=== PATIENT | female | born 1935 | race Asian ===

== ENCOUNTER 2016-10-22 18:19 | Emergency (ER) | payer OTHER ==
--- NOTE | 2016-10-22 21:12 | DIAGNOSTIC IMAGING REPORT ---
PROCEDURE: XR CHEST 1 VIEW INDICATION: HEADACHE TECHNIQUE: Single view chest. 2023 COMPARISON: None. FINDINGS: The heart size is normal. Dual lead left-sided transvenous pacemaker is in place. Normal aortic contour with mild aortic arch atherosclerosis. No central venous congestion. Clear lungs. Slight biapical pleural plaquing. No effusion or pneumothorax. Intact osseous structures. IMPRESSION: 1. No evidence of acute cardiopulmonary disease.
--- NOTE | 2016-10-22 21:20 | ED ORDER SUMMARY ---
..... Patient: CHELSEA COLIN OrderSheet [facility] VisitID: [id number] [place] [address] 81y, F Registration Date/Time: 10/22/2016 ORDER SHEET Weight: 81.6 kg (stated) Allergies: None GENERAL ORDERS: Chest 1V Urgent (20:10/22/2016 Carter ABDALLA) (Ack 20:12 AMcQuoid ER Tech1) (20:29 MCampbell) CT Head wo Cont Urgent (20:10/22/2016 Carter ABDALLA) (Ack 20:12 AMcQuoid ER TechNicci) (20:29 MCampbell) Top Distribution Executive (Continuous) (20:10/22/2016 Carter ABDALLA) (Ack 20:12 AMcQuoid ER TechNicci) (20:20 TBowen R.N.) CBC w Diff Urgent (20:10/22/2016 Carter ABDALLA) (Ack 20:12 AMcQuoid ER TechNicci) (20:38 TBowen R.N.) CMP Urgent (20:10/22/2016 Carter ABDALLA) (Ack 20:12 AMcQuoid ER TechNicci) (20:38 TBowen R.N.) UA-Culture if indicated Urgent (20:10/22/2016 Carter ABDALLA) (Ack 20:12 AMcQuoid ER TechNicci) (20:20 TBowen R.N.) PT with INR Urgent (20:10/22/2016 Carter ABDALLA) (Ack 20:12 AMcQuoid ER TechNicci) (20:38 TBowen R.N.) PTT Urgent (20:10/22/2016 Carter ABDALLA) (Ack 20:12 AMcQuoid ER TechNicci) (20:38 TBowen R.N.) Amylase Urgent (20:10/22/2016 Carter ABDALLA) (Ack 20:12 AMcQuoid ER TechNicci) (20:38 TBowen R.N.) Lipase Urgent (20:10/22/2016 Carter ABDALLA) (Ack 20:12 AMcQuoid ER TechNicci) (20:38 TBowen R.N.) CPK Urgent (20:11 10/22/2016 Carter ABDALLA) (Ack 20:12 AMcQuoid ER Tech1) (20:39 TBowen R.N.) Troponin-I Urgent (20:11 10/22/2016 Carter ABDALLA) (Ack 20:12 AMcQuoid ER Tech1) (20:39 TBowen R.N.) Oxygen (2 L/min) (NC) (20:11 10/22/2016 Carter ABDALLA) (Ack 20:12 AMcQuoid ER Tech1) (20:20 TBowen R.N.) Pulse oximeter (20:11 10/22/2016 Carter ABDALLA) (Ack 20:12 AMcQuoid ER Tech1) (20:20 TBowen R.N.) EKG - ER Stat (20:10/22/2016 Carter ABDALLA) (Ack 20:12 AMcQuoid ER Tech1) (20:38 TBowen R.N.) MEDICATION ORDERS: IV FLUIDS: IV Saline Lock (20:10/22/2016 Carter ABDALLA) (20:47 TBowen R.N.) ORDER SHEET NOTES: [Electronically signed by Sharyn Martini R.N. (21:39 10/22/2016)] [Electronically signed by Ryland Perla MD (02:28 10/30/2016)] [Electronically locked/signed by Sharyn Martini R.N. (21:39 10/22/2016)]
--- NOTE | 2016-10-22 21:20 | ED NURSING NOTES ---
Clinical Report - Nurses [address] [address] [place] [address] 10/22/2016 18:22 Patient: CHELSEA COLIN TRIAGE Triage time 18:33. Acuity: LEVEL 3. Chief Complaint: HEADACHE. --18:37 Sheri Paz R.N. 18:33 10/22/16. BP: 167/93. HR: 71. RR: 18. O2 saturation: 96%. Temp: 98.2 F. Pain level now: 01/08. --18:37 Sheri Paz R.N. Weight: 81.6 kg stated. Height/Length: 72 inches Per Patient. BMI: 24.4. --18:36 Sheri Paz R.N. Medications AmLODIPine Besylate Oral 5 mg, daily. Aspir-Low Oral. Furosemide Oral 80 mg, daily. Glipizide Oral 5 mg, daily. Isosorbide Mononitrate Oral 30mg daily. Levothyroxine Sodium Oral 25 mcg, daily. Lisinopril Oral 40 mg, daily. MetFORMIN HCl Oral 1000mg, 2x a day. Omeprazole Oral 20 mg, 3x a day. Simvastatin Oral 20 mg, daily. --18:35 Sheri Paz R.N. Allergies None. --18:35 Sheri Paz R.N. History Arrived by private vehicle. Historian: patient and family. This started today "comes and goes" every 5-10 seconds. SOCIAL HX: Smoker- current status unknown. No alcohol use or drug use. --18:37 Sheri Paz R.N. PAST MEDICAL HX: ( stent placement with DC approx 10 years ago.). --18:40 Sheri Paz R.N. PROBLEMS: GI Bleeding. Pacemaker. Myocardial Infarction. Diabetes Mellitus. Hypertension. --18:34 Sheri Paz R.N. Interventions ID band on patient. To treatment room. --18:37 Sheri Paz R.N. PHYSICAL ASSESSMENT ( pt reports intermittent headache, left sided, that comes and goes.). GENERAL / NEURO / PSYCH: Alert. Oriented X 4. Appears in no acute distress. Speech within normal limits. HEENT: No facial asymmetry noted. RESPIRATORY: Respirations not labored. CVS: Capillary refill less than 2 seconds. GI / : Abdomen soft and nontender. SKIN: Skin is warm. --18:38 Sheri Paz R.N. NURSING PROGRESS NOTES 18:38 10/22/2016 Site #1 started via IV in the left wrist with an 20g angiocath; one attempt. Blood drawn: rainbow set. Saline lock flushed with 10 mL saline. --18:38 Sheri Paz R.N. Patient gowned. Reassurance given. Call light placed in reach. Side rails up x 2. Bed placed in lowest position. ( Pt. is Mandarin speaking. Son at bedside who speaks Lebanese and Mandarin.). --18:38 Sheri Paz R.N. 18:40 10/22/16. BP: 161/48. HR: 65. O2 saturation: 96%. --18:41 Sheri Paz R.N. ( Report to RICHY Coles for end of shift coverage.). --19:00 Sheri Paz R.N. The patient is resting quietly. --19:50 Snady Wright Patient walked to NE with tech. --20:21 Sandy Wright EKG time: (0 PM). EKG was ordered, performed by a tech and shown to the ED physician. --20:42 Yasmin Robin. DISPOSITION / DISCHARGE No learning barriers present. Discharge instructions provided and reviewed with the patient. Reviewed medication(s) side effects, precautions and course information. Prescription(s) given to the patient (given to son). Patient verbalized understanding. Written instructions provided in Lebanese. The patient was discharged by the physician. She was discharged home and accompanied by family and son. She left the Emergency Department ambulatory and via private vehicle. Family member driving (son). ( pt dc home with son ambulatory to lobby with steady gait, given rx and f/u.). --21:37 Kev Steinberg R.N. 21:34 10/22/16. BP: 154/81. HR: 67. RR: 17. O2 saturation: 97%. Temp: 97.6 F. Pain level now deferred. --21:37 Page-Kev Pruitt R.N. Locked/Released at 10/22/2016 21:39 by Sandy Wright
--- NOTE | 2016-10-22 21:20 | ED NURSING NOTES ---
Clinical Report - Nurses [address] [address] [place] [address] 10/22/2016 18:22 Patient: CHELSEA COLIN TRIAGE Triage time 18:33. Acuity: LEVEL 3. Chief Complaint: HEADACHE. --18:37 Sheri Paz R.N. 18:33 10/22/16. BP: 167/93. HR: 71. RR: 18. O2 saturation: 96%. Temp: 98.2 F. Pain level now: 01/08. --18:37 Sheri Paz R.N. Weight: 81.6 kg stated. Height/Length: 72 inches Per Patient. BMI: 24.4. --18:36 Sheir Paz R.N. Medications AmLODIPine Besylate Oral 5 mg, daily. Aspir-Low Oral. Furosemide Oral 80 mg, daily. Glipizide Oral 5 mg, daily. Isosorbide Mononitrate Oral 30mg daily. Levothyroxine Sodium Oral 25 mcg, daily. Lisinopril Oral 40 mg, daily. MetFORMIN HCl Oral 1000mg, 2x a day. Omeprazole Oral 20 mg, 3x a day. Simvastatin Oral 20 mg, daily. --18:35 Sheri Paz R.N. Allergies None. --18:35 Sheri Paz R.N. History Arrived by private vehicle. Historian: patient and family. This started today "comes and goes" every 5-10 seconds. SOCIAL HX: Smoker- current status unknown. No alcohol use or drug use. --18:37 Sheri Paz R.N. PAST MEDICAL HX: ( stent placement with [place] approx 10 years ago.). --18:40 Sheri Paz R.N. PROBLEMS: GI Bleeding. Pacemaker. Myocardial Infarction. Diabetes Mellitus. Hypertension. --18:34 Sheri Paz R.N. Interventions ID band on patient. To treatment room. --18:37 Sheri Paz R.N. PHYSICAL ASSESSMENT ( pt reports intermittent headache, left sided, that comes and goes.). GENERAL / NEURO / PSYCH: Alert. Oriented X 4. Appears in no acute distress. Speech within normal limits. HEENT: No facial asymmetry noted. RESPIRATORY: Respirations not labored. CVS: Capillary refill less than 2 seconds. GI / : Abdomen soft and nontender. SKIN: Skin is warm. --18:38 Sheri Paz R.N. NURSING PROGRESS NOTES 18:38 10/22/2016 Site #1 started via IV in the left wrist with an 20g angiocath; one attempt. Blood drawn: rainbow set. Saline lock flushed with 10 mL saline. --18:38 Sheri Paz R.N. Patient gowned. Reassurance given. Call light placed in reach. Side rails up x 2. Bed placed in lowest position. ( Pt. is Mandarin speaking. Son at bedside who speaks New Zealander and Mandarin.). --18:38 Sheri Paz R.N. 18:40 10/22/16. BP: 161/48. HR: 65. O2 saturation: 96%. --18:41 Sheri Paz R.N. ( Report to RICHY Coles for end of shift coverage.). --19:00 Sheri Paz R.N. The patient is resting quietly. --19:50 Sandy Wright Patient walked to MA with tech. --20:21 Sandy Wright EKG time: (0 PM). EKG was ordered, performed by a tech and shown to the ED physician. --20:42 Yasmin Robin. DISPOSITION / DISCHARGE No learning barriers present. Discharge instructions provided and reviewed with the patient. Reviewed medication(s) side effects, precautions and course information. Prescription(s) given to the patient (given to son). Patient verbalized understanding. Written instructions provided in New Zealander. The patient was discharged by the physician. She was discharged home and accompanied by family and son. She left the Emergency Department ambulatory and via private vehicle. Family member driving (son). ( pt dc home with son ambulatory to lobby with steady gait, given rx and f/u.). --21:37 Kev Steinberg R.N. 21:34 10/22/16. BP: 154/81. HR: 67. RR: 17. O2 saturation: 97%. Temp: 97.6 F. Pain level now deferred. --21:37 Page-Kev Pruitt R.N. Locked/Released at 10/22/2016 21:39 by Sandy Wright
--- NOTE | 2016-10-22 21:20 | ED ORDER SUMMARY ---
..... Patient: CHELSEA COLIN OrderSheet [facility] VisitID: [id number] [place] [address] 81y, F Registration Date/Time: 10/22/2016 ORDER SHEET Weight: 81.6 kg (stated) Allergies: None GENERAL ORDERS: Chest 1V Urgent (20:10/22/2016 Carter ABDALLA) (Ack 20:12 AMcQuoid ER Tech1) (20:29 MCampbell) CT Head wo Cont Urgent (20:10/22/2016 Carter ABDALLA) (Ack 20:12 AMcQuoid ER TechNicci) (20:29 MCampbell) Decorator Hand (Continuous) (20:10/22/2016 Carter ABDALLA) (Ack 20:12 AMcQuoid ER TechNicci) (20:20 TBowen R.N.) CBC w Diff Urgent (20:10/22/2016 Carter ABDALLA) (Ack 20:12 AMcQuoid ER TechNicci) (20:38 TBowen R.N.) CMP Urgent (20:10/22/2016 Carter ABDALLA) (Ack 20:12 AMcQuoid ER TechNicci) (20:38 TBowen R.N.) UA-Culture if indicated Urgent (20:10/22/2016 Carter ABDALLA) (Ack 20:12 AMcQuoid ER TechNicci) (20:20 TBowen R.N.) PT with INR Urgent (20:10/22/2016 Carter ABDALLA) (Ack 20:12 AMcQuoid ER TechNicci) (20:38 TBowen R.N.) PTT Urgent (20:10/22/2016 Carter ABDALLA) (Ack 20:12 AMcQuoid ER TechNicci) (20:38 TBowen R.N.) Amylase Urgent (20:10/22/2016 Carter ABDALLA) (Ack 20:12 AMcQuoid ER TechNicci) (20:38 TBowen R.N.) Lipase Urgent (20:10/22/2016 Carter ABDALLA) (Ack 20:12 AMcQuoid ER TechNicci) (20:38 TBowen R.N.) CPK Urgent (20:11 10/22/2016 Carter ABDALLA) (Ack 20:12 AMcQuoid ER Tech1) (20:39 TBowen R.N.) Troponin-I Urgent (20:11 10/22/2016 Carter ABDALLA) (Ack 20:12 AMcQuoid ER Tech1) (20:39 TBowen R.N.) Oxygen (2 L/min) (NC) (20:11 10/22/2016 Carter ABDALLA) (Ack 20:12 AMcQuoid ER Tech1) (20:20 TBowen R.N.) Pulse oximeter (20:11 10/22/2016 Carter ABDALLA) (Ack 20:12 AMcQuoid ER Tech1) (20:20 TBowen R.N.) EKG - ER Stat (20:10/22/2016 Carter ABDALLA) (Ack 20:12 AMcQuoid ER Tech1) (20:38 TBowen R.N.) MEDICATION ORDERS: IV FLUIDS: IV Saline Lock (20:10/22/2016 Carter ABDALLA) (20:47 TBowen R.N.) ORDER SHEET NOTES: [Electronically signed by Sharyn Martini R.N. (21:39 10/22/2016)] [Electronically signed by Ryland Perla MD (02:28 10/30/2016)] [Electronically locked/signed by Sharyn Martini R.N. (21:39 10/22/2016)]
--- NOTE | 2016-10-22 21:20 | ED CLINICAL REPORT ---
Clinical Report - Physicians/Mid Levels [facility] [address] [place] [address] 10/22/2016 18:22 Patient: CHELSEA COLIN Time Seen: 19:29. Arrived- By private vehicle. Historian- patient and son. HISTORY OF PRESENT ILLNESS Chief Complaint: HEADACHE. This started today and is now gone. It was abrupt in onset and has been intermittent. Located in the right hemicranial region. No neck pain. The patient has had blurred vision (chronically). It has been similar to previous symptoms. No associated nausea, numbness, weakness or vomiting. (her son says that she has been mildly confused). REVIEW OF SYSTEMS No chills, fever, sweats, calf pain or chest pain. No cough, difficulty breathing, pedal edema, palpitations or abdominal pain. No constipation, diarrhea, nausea, vomiting or urinary problems. All systems otherwise negative, except as recorded above. PAST HISTORY Problems: GI Bleeding. Abdominal Pain. Pacemaker. Myocardial Infarction. Cystitis. Diabetes Mellitus. Hypertension. Immunizations. Medications: AmLODIPine Besylate Oral 5 mg, daily. Aspir-Low Oral. Furosemide Oral 80 mg, daily. Glipizide Oral 5 mg, daily. Isosorbide Mononitrate Oral 30mg daily. Levothyroxine Sodium Oral 25 mcg, daily. Lisinopril Oral 40 mg, daily. MetFORMIN HCl Oral 1000mg, 2x a day. Omeprazole Oral 20 mg, 3x a day. Simvastatin Oral 20 mg, daily. Allergies: None. SOCIAL HISTORY Never smoker. No alcohol use or drug use. FAMILY HISTORY Denies family medical history. ADDITIONAL NOTES The nursing notes have been reviewed. PHYSICAL EXAM Vital Signs: 10/22/2016 18:33 BP: 167/93. HR: 71. RR: 18. O2 saturation: 96%. Temp: 98.2 F. Pain level now: 8/10. Have been reviewed. Appearance: Alert. Eyes: Pupils equal, round and reactive to light. Eyes normal inspection. ENT: Pharynx normal. Neck: Moderate left-sided carotid bruit present. CVS: Normal heart rate and rhythm. Heart sounds normal. Respiratory: No respiratory distress. Breath sounds normal. Abdomen: Soft and nontender. No organomegaly. Back: Normal inspection. Skin: Skin warm and dry. Normal skin color. No rash. Normal skin turgor. Extremities: Extremities exhibit normal ROM. No calf tenderness. No lower extremity edema. Neuro: Alert. Mood/affect normal. Speech normal. Cranial nerves normal (as tested). No cerebellar findings. No motor deficit. No sensory deficit. LABS, X-RAYS, AND EKG EKG: No acute process. Rate: 60. Atrial and ventricular paced rhythm. Prior EKG unavailable. The study has been independently viewed by me. Chest X-ray: No acute disease. The X-rays were independently viewed by me. Laboratory Tests: UA-Culture if indicated: (GONZALEZ: 10/22/2016 20:15) ( MsgRcvd 10/22/2016 20:36) Final results Test Result Flag Units (Reference) URINE COLOR YELLOW URINE APPEARANCE SL CLOUDY URINE GLUCOSE NEGATIVE (NEGATIVE) URINE BILIRUBIN NEGATIVE (NEGATIVE) URINE KETONE NEGATIVE (NEGATIVE) URINE SPECIFIC GRAVITY 1.010 (1.010-1.030) URINE PH 6.5 (5.0-8.0) URINE PROTEIN TRACE (NEGATIVE) URINE UROBILINOGEN 0.2 EU/dL (0.2-1.0) URINE NITRITE POSITIVE (NEGATIVE) URINE BLOOD NEGATIVE (NEGATIVE) URINE LEUK ESTERASE POSITIVE (NEGATIVE) URINE RBC NONE SEEN rbc/hpf (0-1) URINE WBC 5-10 wbc/hpf (0-1) URINE EPITHELIAL CELLS 0-1 EPI/hpf (0-5) URINE BACTERIA MANY (4+) (NONE SEEN) URINE COMMENT CULTURE INDICATED URINE CULTURES ARE SET-UP BASED ON THE FOLLOWING CRITERIA:POSITIVE NITRITEPOSITIVE LEUKOCYTE ESTERASEGREATER THAN 10 WHITE BLOOD CELLSMODERATE (2+) OR GREATER BACTERIA CBC w Diff: (GONZALEZ: 10/22/2016 18:40) ( MsgRcvd 10/22/2016 20:26) Final results Test Result Flag Units (Reference) WHITE BLOOD COUNT 4.5 K/uL (4.5-11.5) RED BLOOD COUNT 3.42 L M/uL (4.00-5.20) HEMOGLOBIN 10.6 L gm/dL (12.0-16.0) HEMATOCRIT 31.7 L % (36.0-46.0) MEAN CELL VOLUME 93 fL (80-100) MEAN CORPUSCULAR HGB 31 pg (26-34) MEAN CORPUSCULAR HGB CONC 34 g/dL (31-37) RED CELL DISTRIBUTION WIDTH 13.1 % (11.6-14.8) PLATELET COUNT 168 K/uL (150-400) NEUTROPHIL % 51.4 % (50-75) LYMPH % 35.4 % (25-40) MONO % 9.0 % (3-14) EOSINOPHIL % 3.4 % (0-4) BASOPHIL % 0.8 % (0-2) PT with INR: (GONZALEZ: 10/22/2016 18:40) ( [facility] 10/22/2016 20:31) Final results Test Result Flag Units (Reference) INR 0.9 (0.8-1.2) Low Intensity Therapy: INR 1.5-2.0 PT range 18.5-23.1Mod.Intensity Therapy: INR 2.0-3.0 PT range 23.1-31.5High Intensity Therapy: INR 2.5-3.5 PT range 27.4-35.5High Intensity Therapy 2: INR 3.0-4.0 PT range 31.5-39.3 APTT 31 SECONDS (24-34) CMP: (GONZALEZ: 10/22/2016 18:40) ( [facility] 10/22/2016 20:52) Final results Test Result Flag Units (Reference) GLUCOSE 188 H mg/dL (70-110) BUN 32 H mg/dL (7-18) CREATININE 1.2 mg/dL (0.6-1.3) Estimated GFR 45.83 mL/min Estimated GFR- 55.54 mL/min Note: Persistent reduction over 3 months in eGFR<60 mL/min/1.73 m2 defines CKD. Patients with eGFR values>=60 mL/min/1.73 m2 may also have CKD if evidence ofpersistent proteinuria. Additional information may be foundat www.kidney.org. SODIUM 141 mmol/L (136-145) POTASSIUM 4.3 mmol/L (3.5-5.1) CHLORIDE 105 mmol/L (98-107) CARBON DIOXIDE 25 mmol/L (21-32) CALCIUM 9.1 mg/dL (8.5-10.1) TOTAL PROTEIN 7.7 g/dL (6.4-8.2) ALBUMIN 3.6 g/dL (3.3-5.0) BILIRUBIN, TOTAL 0.4 mg/dL (0.0-1.0) ALKALINE PHOSPHATASE 80 U/L (46-116) AST (SGOT) 15 U/L (15-37) ALT (SGPT) 18 U/L (12-78) LIPASE 175 U/L (73-393) AMYLASE 64 U/L (25-115) CPK 53 U/L (24-260) TROPONIN I <0.05 L ng/mL (0.00-1.5) TROPONIN REFERENCE RANGE:<0.1 NEGATIVE0.1-1.5 INDETERMINANT>1.5 POSITIVE . PROGRESS AND PROCEDURES Course of Care: Patient is stable. Patient/family counseled. Old medical records reviewed. Disposition: Discharged. Condition: stable. CLINICAL IMPRESSION Episodic headache. asymptomatic bacteruria. INSTRUCTIONS Warnings: Further evaluation is necessary. GENERAL WARNINGS: Return or contact your physician immediately if your condition worsens or changes unexpectedly, if not improving as expected, or if other problems arise. Your Current Medications: CONTINUE TAKING THE FOLLOWING MEDICATIONS: AmLODIPine Besylate Oral : 5 mg daily. Aspir-Low Oral. Furosemide Oral : 80 mg daily. Glipizide Oral : 5 mg daily. Isosorbide Mononitrate Oral : 30mg daily. Levothyroxine Sodium Oral : 25 mcg daily. Lisinopril Oral : 40 mg daily. MetFORMIN HCl Oral : 1000mg 2x a day. Omeprazole Oral : 20 mg 3x a day. Simvastatin Oral : 20 mg daily. Prescription Medications: Ultram 50 mg: take 1-2 orally every 6 hours. Dispense fifteen (15). No refills. Substitution is permissible. Follow-up: Follow up with your doctor SASHA COLIN in two days. Call for the next available appointment. Follow up with a neurologist- as recommended by your primary care physician. Understanding of the discharge instructions verbalized by patient and family. (Electronically signed by Ryland Perla MD 10/30/2016 2:28) Addenda for CHELSEA COLIN VisitID: [id number] Date: 10/22/2016 10/23/2016 16:46 contact made with family, re: urine culture; Rx called to [facility] for Macrobid 100 mg 1 po q 12 hrs, #14; per Ovidio COLLIER (Electronically signed by Vale Rogel R.N. - 10/23/2016 16:46)
--- NOTE | 2016-10-22 21:20 | DIAGNOSTIC IMAGING REPORT ---
PROCEDURE: CT HEAD WITHOUT CONTRAST INDICATION: HEADACHE TECHNIQUE: Axial CT images were acquired through the head. Coronal and sagittal reformations were created. COMPARISON: 08/16/2013 FINDINGS: Mild to moderate cerebral cortical atrophy, mildly progressed compared to the prior study. Mild patchy hypodensity in the periventricular and subcortical white matter. No focal cortical volume loss. No intracranial hemorrhage or extraaxial fluid collections. Ventricles are normal in size, shape and position. There is no mass, mass effect or midline shift. The barnard-white matter differentiation is normal. There is no edema. Mild calcific atherosclerosis of the intracranial internal carotid arteries. The calvarium is intact. Chronic partial opacification of the left maxillary sinus. Other sinuses and mastoids are normally aerated. The extracranial soft tissues and orbits are normal. IMPRESSION: 1. No CT evidence of acute intracranial process. 2. Age related involutional and white matter changes, mildly progressed since the prior study. 3. Chronic left maxillary sinus disease. 4. Findings discussed with Dr. Perla at [address] scans at this facility use dose modulation, iterative reconstruction, and/or weight-based dosing when appropriate to reduce radiation dose to as low as reasonably achievable.
--- NOTE | 2016-10-30 02:28 | ED MAR SUMMARY ---
..... Medication Administration Record [facility] [address] [place], [place] [id number] Patient: CHELSEA COLIN Visit ID: [id number] 81y, F Weight: 81.6 kg Height/Length: 72 in BMI: 24.4 ALLERGIES: None
--- NOTE | 2016-10-30 02:28 | ED MED RECONCILIATION SUMMARY ---
Patient: CHELSEA COLIN Medication Reconciliation Report [facility] VisitID: [id number] [address] [place] [address] 81y, F Registration Date/Time: 10/22/2016 Weight: 81.6 kg Height/Length: 72 in. BMI: 24.4 ALLERGIES: None The patient's Home Medications are listed below: CONTINUE TAKING THE FOLLOWING MEDICATIONS: AmLODIPine Besylate Oral 5 mg, daily Aspir-Low Oral Furosemide Oral 80 mg, daily Glipizide Oral 5 mg, daily Isosorbide Mononitrate Oral 30mg daily Levothyroxine Sodium Oral 25 mcg, daily Lisinopril Oral 40 mg, daily MetFORMIN HCl Oral 1000mg, 2x a day Omeprazole Oral 20 mg, 3x a day Simvastatin Oral 20 mg, daily The source(s) of the original Home Medication information: Not obtained. The following Medications were given to the patient in the Emergency Department: None. The following Medications were prescribed to the patient: Ultram 50 mg: take 1-2 orally every 6 hours. Dispense fifteen (15). No refills. Substitution is permissible. -- Ryland Perla MD
--- NOTE | 2016-10-30 02:28 | ED MED RECONCILIATION SUMMARY ---
Patient: CHELSEA COLIN Medication Reconciliation Report [facility] VisitID: [id number] [address] [place] [address] 81y, F Registration Date/Time: 10/22/2016 Weight: 81.6 kg Height/Length: 72 in. BMI: 24.4 ALLERGIES: None The patient's Home Medications are listed below: CONTINUE TAKING THE FOLLOWING MEDICATIONS: AmLODIPine Besylate Oral 5 mg, daily Aspir-Low Oral Furosemide Oral 80 mg, daily Glipizide Oral 5 mg, daily Isosorbide Mononitrate Oral 30mg daily Levothyroxine Sodium Oral 25 mcg, daily Lisinopril Oral 40 mg, daily MetFORMIN HCl Oral 1000mg, 2x a day Omeprazole Oral 20 mg, 3x a day Simvastatin Oral 20 mg, daily The source(s) of the original Home Medication information: Not obtained. The following Medications were given to the patient in the Emergency Department: None. The following Medications were prescribed to the patient: Ultram 50 mg: take 1-2 orally every 6 hours. Dispense fifteen (15). No refills. Substitution is permissible. -- Ryland Perla MD
--- NOTE | 2016-10-30 02:28 | ED MAR SUMMARY ---
..... Medication Administration Record [facility] [address] [place], [place] [id number] Patient: CHELSEA COLIN Visit ID: [id number] 81y, F Weight: 81.6 kg Height/Length: 72 in BMI: 24.4 ALLERGIES: None
--- NOTE | 2016-10-30 02:28 | ED DISCHARGE INSTRUCTIONS ---
Patient: CHELSEA COLIN General Instructions [facility] VisitID: [id number] [place] [address] 81y, F Registration Date/Time: 10/22/2016 Episodic headache. asymptomatic bacteruria. INSTRUCTIONS Warnings: Further evaluation is necessary. GENERAL WARNINGS: Return or contact your physician immediately if your condition worsens or changes unexpectedly, if not improving as expected, or if other problems arise. Your Current Medications: CONTINUE TAKING THE FOLLOWING MEDICATIONS: AmLODIPine Besylate Oral : 5 mg daily. Aspir-Low Oral. Furosemide Oral : 80 mg daily. Glipizide Oral : 5 mg daily. Isosorbide Mononitrate Oral : 30mg daily. Levothyroxine Sodium Oral : 25 mcg daily. Lisinopril Oral : 40 mg daily. MetFORMIN HCl Oral : 1000mg 2x a day. Omeprazole Oral : 20 mg 3x a day. Simvastatin Oral : 20 mg daily. Prescription Medications: Ultram 50 mg: take 1-2 orally every 6 hours. Dispense fifteen (15). No refills. Substitution is permissible. Follow-up: Follow up with your doctor SASHA COLIN in two days. Call for the next available appointment. Follow up with a neurologist- as recommended by your primary care physician. Understanding of the discharge instructions verbalized by patient and family. ADDITIONAL INFORMATION Headache [Unspecified] The cause of your headache today is not clear, but it does not appear to be the sign of any serious illness. Under stress, some people tense the muscles of their shoulder, neck and scalp without knowing it. If this condition lasts long enough, a TENSION HEADACHE can occur. A MIGRAINE HEADACHE is caused by changes in blood flow to the brain. A migraine attack may be triggered by emotional stress, hormone changes during the menstrual cycle, oral contraceptives, alcohol use, certain foods containing tyramine, eye strain, weather changes, missing meals, lack of sleep or oversleeping. Other causes of headache include a viral illness with high fever, head injury with concussion, sinus, ear or throat infection, dental pain and TMJ (jaw joint) pain. More serious but less common causes of headache include stroke, brain hemorrhage, brain tumor, meningitis and encephalitis. Home Care: If you were given pain medicine for this headache, do not drive yourself home. Arrange for a ride, instead. When you get home, try to sleep. You should feel much better when you wake up. Apply heat to the back of your neck to relieve neck muscle spasm. Migraine headaches may respond best to an ice pack on the forehead or at the base of the skull. If you are having nausea or vomiting, follow a light diet until your headache is relieved. If you have a migraine type headache, use sunglasses when in the daylight or around bright indoor lighting until symptoms improve. Bright glaring light can worsen this kind of headache. Follow Up with your doctor if the headache is not better within the next 24 hours. If you have frequent headaches you should discuss a treatment plan with your primary care doctor. By being aware of the earliest signs of headache, and starting treatment right away, you may be able to stop the pain yourself. Get Prompt Medical Attention if any of the following occur: Worsening of your head pain or no improvement within 24 hours Repeated vomiting (unable to keep liquids down) Fever of 100.4F (38C) or higher, or as directed by your healthcare provider Stiff neck Extreme drowsiness, confusion or fainting Dizziness, vertigo (dizziness with spinning sensation) Weakness of an arm or leg or one side of the face Difficulty with speech or vision Tramadol Hydrochloride Oral tablet What is this medicine? TRAMADOL (TRA ma dole) is a pain reliever. It is used to treat moderate to severe pain in adults. How should I use this medicine? Take this medicine by mouth with a full glass of water. Follow the directions on the prescription label. If the medicine upsets your stomach, take it with food or milk. Do not take more medicine than you are told to take. Talk to your stna regarding the use of this medicine in children. Special care may be needed. What side effects may I notice from receiving this medicine? Side effects that you should report to your doctor or health interior plant caretaker as soon as possible: allergic reactions like skin rash, itching or hives, swelling of the face, lips, or tongue breathing difficulties, wheezing confusion itching light headedness or fainting spells redness, blistering, peeling or loosening of the skin, including inside the mouth seizures Side effects that usually do not require medical attention (report to your doctor or health interior plant caretaker if they continue or are bothersome): constipation dizziness drowsiness headache nausea, vomiting What may interact with this medicine? Do not take this medicine with any of the following medications: MAOIs like Carbex, Eldepryl, Marplan, Nardil, and Parnate This medicine may also interact with the following medications: alcohol or medicines that contain alcohol antihistamines benzodiazepines bupropion carbamazepine or oxcarbazepine clozapine cyclobenzaprine digoxin furazolidone linezolid medicines for depression, anxiety, or psychotic disturbances medicines for migraine headache like almotriptan, eletriptan, frovatriptan, naratriptan, rizatriptan, sumatriptan, zolmitriptan medicines for pain like pentazocine, buprenorphine, butorphanol, meperidine, nalbuphine, and propoxyphene medicines for sleep muscle relaxants naltrexone phenobarbital phenothiazines like perphenazine, thioridazine, chlorpromazine, mesoridazine, fluphenazine, prochlorperazine, promazine, and trifluoperazine procarbazine warfarin What if I miss a dose? If you miss a dose, take it as soon as you can. If it is almost time for your next dose, take only that dose. Do not take double or extra doses. Where should I keep my medicine? Keep out of the reach of children. Store at room temperature between 15 and 30 degrees C (59 and 86 degrees F). Keep container tightly closed. Throw away any unused medicine after the expiration date. What should I tell my health care provider before I take this medicine? They need to know if you have any of these conditions: brain tumor depression drug abuse or addiction head injury if you frequently drink alcohol containing drinks kidney disease or trouble passing urine liver disease lung disease, asthma, or breathing problems seizures or epilepsy suicidal thoughts, plans, or attempt; a previous suicide attempt by you or a family member an unusual or allergic reaction to tramadol, codeine, other medicines, foods, dyes, or preservatives or trying to get breast-feeding What should I watch for while using this medicine? Tell your doctor or health interior plant caretaker if your pain does not go away, if it gets worse, or if you have new or a different type of pain. You may develop tolerance to the medicine. Tolerance means that you will need a higher dose of the medicine for pain relief. Tolerance is normal and is expected if you take this medicine for a long time. Do not suddenly stop taking your medicine because you may develop a severe reaction. Your body becomes used to the medicine. This does NOT mean you are addicted. Addiction is a behavior related to getting and using a drug for a non-medical reason. If you have pain, you have a medical reason to take pain medicine. Your doctor will tell you how much medicine to take. If your doctor wants you to stop the medicine, the dose will be slowly lowered over time to avoid any side effects. You may get drowsy or dizzy. Do not drive, use machinery, or do anything that needs mental alertness until you know how this medicine affects you. Do not stand or sit up quickly, especially if you are an older patient. This reduces the risk of dizzy or fainting spells. Alcohol can increase or decrease the effects of this medicine. Avoid alcoholic drinks. You may have constipation. Try to have a bowel movement at least every 2 to 3 days. If you do not have a bowel movement for 3 days, call your doctor or health interior plant caretaker. Your mouth may get dry. Chewing sugarless gum or sucking hard candy, and drinking plenty of water may help. Contact your doctor if the problem does not go away or is severe. You have been given the following additional information: Headache, Unspecified Tramadol Hydrochloride Oral tablet (Electronically signed by Ryland Perla MD 10/30/2016 2:28)
== END 2016-10-22 21:37 | disposition home or self-care (01) ==
LOC: ED SRH 18:19
DX: R51 Headache (principal); R82.71 Bacteriuria; I10 Essential (primary) hypertension; E11.9 Type 2 diabetes mellitus without complications; Z79.84 Long term (current) use of oral hypoglycemic drugs; Z79.82 Long term (current) use of aspirin; I25.2 Old myocardial infarction; Z79.899 Other long term (current) drug therapy; Z95.0 Presence of cardiac pacemaker
CPT/HCPCS: 90004; 90100; 90148; 90469; 90616; 92235; 92530; 92610; 94001; 94060; 95059

== ENCOUNTER 2016-11-30 10:00 | Emergency (ER) | payer OTHER ==
--- NOTE | 2016-11-30 11:48 | ED NURSING NOTES ---
Clinical Report - Nurses [facility] [address] [place] [address] 11/30/2016 10:02 Patient: CHELSEA COLIN TRIAGE Triage time 10:12. Acuity: LEVEL 3. Chief Complaint: RIGHT LOWER EXTREMITY PAIN, SWELLING and REDNESS. Alert. No acute distress. JOHNSON COMA SCORE: [place] Coma Scale: 15- eyes open spontaneously (4); best verbal response- oriented x 4 (5); best motor response- obeys commands (6). --10:19 Cecelia Gonzalez R.N. 10:12 11/30/16. BP: 143/67. HR: 74. RR: 16. O2 saturation: 98%. Temp: 98.2 F. Pain level now: 5/10. --10:19 Cecelia Gonzalez R.N. 10:12 11/30/16. BP: 143/67. HR: 74. RR: 16. O2 saturation: 98%. Temp: 98.2 F. Pain level now: 5/10. --10:19 Cecelia Gonzalez R.N. Weight: 68 kg estimated. Height/Length: 62 inches Estimated. BMI: 27.4. --10:14 Cecelia Gonzalez R.N. Medications AmLODIPine Besylate Oral 5 mg, daily. Aspir-Low Oral. Furosemide Oral 80 mg, daily. Glipizide Oral 5 mg, daily. Isosorbide Mononitrate Oral 30mg daily. Levothyroxine Sodium Oral 25 mcg, daily. Lisinopril Oral 40 mg, daily. MetFORMIN HCl Oral 1000mg, 2x a day. Omeprazole Oral 20 mg, 3x a day. Simvastatin Oral 20 mg, daily. --10:17 Cecelia Gonzalez R.N. Tramadol HCL Oral 50 mg, as needed. --10:17 Cecelia Gonzalez R.N. Allergies None. --10:17 Cecelia Gonzalez R.N. Medication/allergy information source: the patient's family. --10:19 Cecelia Gonzalez R.N. History Arrived by private vehicle. Historian: patient and family. Accompanied by family. Primary physician (michelle). This occurred (2 days ago). She has had swelling, redness and trouble walking. The patient has been limping when trying to walk. PAST MEDICAL HX: Tetanus status: unknown. The patient is post-menopausal. SOCIAL HX: Never smoker. No alcohol use or drug use. FALL RISK ASSESSMENT: Fall risk assessment completed. No fall risk identified. NUTRITIONAL RISK ASSESSMENT: The nutritional risk assessment revealed no deficiencies. FUNCTIONAL ASSESSMENT: Functional assessment: no impairments noted. LEARNING NEEDS ASSESSMENT: A learning needs assessment was performed. Factors affecting the patient's ability to learn include communication / language barriers. --10:19 Cecelia Gonzalez R.N. PROBLEMS: Headache. GI Bleeding. Abdominal Pain. Pacemaker. Myocardial Infarction. Cystitis. Diabetes Mellitus. Hypertension. --10:18 Cecelia Gonzalez R.N. ADDITIONAL SURGERIES: Pacemaker. Stents. --10:18 Cecelia Gonzalez R.N. Interventions ID band on patient. To room. --10:19 Cecelia Gonzalez R.N. PHYSICAL ASSESSMENT Ambulatory to room. EXTREMITIES: Erythema on the extremities. Limited ROM present. Increased warmth on the extremities. Lower extremity edema. Extremity pulses are within normal limits. Neuro-vascular status intact to the extremity. Right foot: tenderness, swelling and erythema. Limited weight bearing secondary to pain. SKIN: Skin intact. Skin is warm and dry. --10:20 Cecelia Gonzalez R.N. NURSING PROGRESS NOTES Extremity elevated. Two patient identifiers checked. Call light placed in reach. Side rails up x 1. Bed placed in lowest position. Brakes of bed on. Patient ready for evaluation. --10:20 Cecelia Gonzalez R.N. 10:23 11/30/2016 Hydrocodone-APAP (Hydrocodone-Acetaminophen) PO 5/325 mg Tablets 1 tab given. Allergies verified, confirmed 5 rights and sedative warning given to the patient and patient's family. --10:23 Cecelia Gonzalez R.N. 12:11/30/2016 Keflex (Cephalexin) PO 500 mg given. Allergies verified and confirmed 5 rights. --14:54 Cecelia Gonzalez R.N. 12:10 11/30/2016 Bactrim DS (Sulfamethoxazole-TMP DS) PO 1 tab given. Allergies verified and confirmed 5 rights. --14:54 Cecelia Gonzalez R.N. DISPOSITION / DISCHARGE 12:15. No learning barriers present. Discharge instructions provided and reviewed with the patient and family. Reviewed medication(s) side effects, precautions, dosing and course information. Prescription(s) given to the mechanical project engineer. Patient verbalized understanding. Written instructions provided in Swedish. The patient was discharged home and accompanied by family. She left the Emergency Department ambulatory and via private vehicle. Family member driving. Medication list reviewed and validated. --14:54 Cecelia Gonzalez R.N. 14:52 11/30/16. BP: 128/72. HR: 78. RR: 16. O2 saturation: 100%. Temp: deferred. Pain level now: 07/11. 12:32 11/30/16. BP: 133/75. HR: 80. RR: 16. O2 saturation: 100% on room air. 10:12 11/30/16. BP: 143/67. HR: 74. RR: 16. O2 saturation: 98%. Temp: 98.2 F. Pain level now: 10/08. --14:54 Cecelia Gonzalez R.N. Locked/Released at 11/30/2016 14:55 by Cecelia Gonzalez R.N.
--- NOTE | 2016-11-30 11:48 | ED ORDER SUMMARY ---
..... Patient: CHELSEA COLIN OrderSheet [facility] VisitID: [id number] [place] [address] 81y, F Registration Date/Time: 11/30/2016 ORDER SHEET Weight: 68.0 kg (estimated) Allergies: None GENERAL ORDERS: Toe Right (right 4th digit) Urgent (10:19 11/30/2016 Shefali Nicholas) (Ack 10:24 OHernandez) (12:08 SRoberts R.N.) MEDICATION ORDERS: Hydrocodone-APAP PO 5/325 mg (NOW, HIGH ALERT MEDICATION) (10:19 11/30/2016 Shefali Nicholas) (Ack 10:20 SRoberts R.N.) (10:23 SRoberts R.N.) Keflex PO 500 mg (NOW) (12:11/30/2016 Shefali Nicholas) (Ack 12:08 SRoberts R.N.) (14:54 SRoberts R.N.) Bactrim DS PO (Tablet 800-160 mg) 1 tab (NOW) (12:11/30/2016 Shefali Nicholas) (Ack 12:08 SRoberts R.N.) (14:54 SRoberts R.N.) IV FLUIDS: ORDER SHEET NOTES: [Electronically signed by Cecelia Gonzalez R.N. (14:55 11/30/2016)] [Electronically signed by Aldo Bourgeois Dr. (17:23 11/30/2016)] [Electronically locked/signed by Cecelia Gonzalez R.N. (14:55 11/30/2016)]
--- NOTE | 2016-11-30 11:48 | ED CLINICAL REPORT ---
Clinical Report - Physicians/Mid Levels [place] [address] [facility] [place] [address] 11/30/2016 10:02 Patient: CHELSEA COLIN Time Seen: 1010; initial patient contact. Arrived- By private vehicle. Historian- patient. HISTORY OF PRESENT ILLNESS Chief Complaint: Injury to the right 4th toe. The injury happened past 2 days. Occurred at home. (does not recall). Patient is experiencing moderate pain. Patient denies injury to the head or neck. No other injury. REVIEW OF SYSTEMS The patient complains of pain on weight bearing. She has had swelling. No suspected foreign body or skin laceration. redness. All systems otherwise negative, except as recorded above. PAST HISTORY See nurses notes. Tetanus immunization status is up-to-date. SOCIAL HISTORY Never smoker. No alcohol use or drug use. No recent travel. Is a local resident. PHYSICAL EXAM Appearance: Alert. Oriented X3. No acute distress. CVS: Normal heart rate and rhythm. Heart sounds normal. Pulses normal. Respiratory: No respiratory distress. Breath sounds normal. Chest nontender. No rales, rhonchi or wheezes. Abdomen: No visible injury. Soft and nontender. Skin: Skin intact. Skin warm and dry. Extremities: (erythema and swelling to the 4th right toe only. no other areas of injury/infection. neurovasc intact. skin intact. no fb. no pineda abnormalities or crepitus.). Extremities otherwise negative. LABS, X-RAYS, AND EKG Rt Toes X-ray: (PROCEDURE: XR TOE - RIGHT INDICATION: PAIN TECHNIQUE: Three views. COMPARISON: Right foot x-ray 06/21/2014. FINDINGS: Soft tissue swelling of the right fourth toe but there is no fracture, dislocation or bony destruction. IMPRESSION: 1. Right fourth toe soft tissue swelling but no fracture or evidence of osteomyelitis.). The X-rays were independently viewed by me and interpreted by the radiologist. The X-rays were discussed with the radiologist (via pacs). PROGRESS AND PROCEDURES Course of Care: the patient is a pleasasnt 81 yo female presenting for evaluation of 4th right toe pain. patient non-toxic. no systemic symptoms. possible dislocation, fracture, or osteo. patient agreeable to plan. work up negative. patient with improved symptoms. repeat examination reassuring. Discussed work up, diagnosis, home care, follow up, and return precautions. All questions answered. Patient expressed understanding of these instructions and was agreeable to them. Disposition: Discharged. Condition: good. CLINICAL IMPRESSION 11/30/2016 10:12 BP: 143/67. HR: 74. RR: 16. O2 saturation: 98%. Temp: 98.2 F. Pain level now: 5/10. Hypertensive. Oxygen saturation normal. Cellulitis of the right 4th toe. INSTRUCTIONS Warnings: GENERAL WARNINGS: Return or contact your physician immediately if your condition worsens or changes unexpectedly, if not improving as expected, or if other problems arise. Specifically return if pain, vomiting, bleeding, breathing difficulty or fever. Your Current Medications: CONTINUE TAKING THE FOLLOWING MEDICATIONS: AmLODIPine Besylate Oral : 5 mg daily. Aspir-Low Oral. Furosemide Oral : 80 mg daily. Glipizide Oral : 5 mg daily. Isosorbide Mononitrate Oral : 30mg daily. Levothyroxine Sodium Oral : 25 mcg daily. Lisinopril Oral : 40 mg daily. MetFORMIN HCl Oral : 1000mg 2x a day. Omeprazole Oral : 20 mg 3x a day. Simvastatin Oral : 20 mg daily. Tramadol HCL Oral : 50 mg, prn. Prescription Medications: Cephalexin 500 mg: take 1 capsule orally every 8 hours for 10 days. No refill. [place] 5 mg / 325 mg tablets: take 1 orally every 6 hours as needed for pain. Dispense twelve (12). No refill. Substitution is permissible. Bactrim DS 800 mg / 160 mg: take 1 tablet orally every 12 hours for 10 days. No refill. Substitution is permissible. Follow-up: Return to the emergency department as needed. Follow up with a specialist. Follow up with your doctor in three days. Reason for referral: recheck today's concerns. Summary of care provided to patient via paper. Screening today revealed the patient's blood pressure to be in the normal range. The patient should follow up with a primary care provider for blood pressure management. Understanding of the discharge instructions verbalized by patient. (Electronically signed by Aldo Bourgeois Dr. 11/30/2016 17:23)
--- NOTE | 2016-11-30 11:48 | ED ORDER SUMMARY ---
..... Patient: CHELSEA COLIN OrderSheet [facility] VisitID: [id number] [place] [address] 81y, F Registration Date/Time: 11/30/2016 ORDER SHEET Weight: 68.0 kg (estimated) Allergies: None GENERAL ORDERS: Toe Right (right 4th digit) Urgent (10:19 11/30/2016 Shefali Nicholas) (Ack 10:24 OHernandez) (12:08 SRoberts R.N.) MEDICATION ORDERS: Hydrocodone-APAP PO 5/325 mg (NOW, HIGH ALERT MEDICATION) (10:19 11/30/2016 Shefali Nichoals) (Ack 10:20 SRoberts R.N.) (10:23 SRoberts R.N.) Keflex PO 500 mg (NOW) (12:11/30/2016 Shefali Nicholas) (Ack 12:08 SRoberts R.N.) (14:54 SRoberts R.N.) Bactrim DS PO (Tablet 800-160 mg) 1 tab (NOW) (12:11/30/2016 Shefali Nicholas) (Ack 12:08 SRoberts R.N.) (14:54 SRoberts R.N.) IV FLUIDS: ORDER SHEET NOTES: [Electronically signed by Cecelia Gonzalez R.N. (14:55 11/30/2016)] [Electronically signed by Aldo Bourgeois Dr. (17:23 11/30/2016)] [Electronically locked/signed by Cecelia Gonzalez R.N. (14:55 11/30/2016)]
--- NOTE | 2016-11-30 11:48 | ED NURSING NOTES ---
Clinical Report - Nurses [facility] [address] [place] [address] 11/30/2016 10:02 Patient: CHELSEA COLIN TRIAGE Triage time 10:12. Acuity: LEVEL 3. Chief Complaint: RIGHT LOWER EXTREMITY PAIN, SWELLING and REDNESS. Alert. No acute distress. JOHNSON COMA SCORE: [place] Coma Scale: 15- eyes open spontaneously (4); best verbal response- oriented x 4 (5); best motor response- obeys commands (6). --10:19 Cecelia Gonzalez R.N. 10:12 11/30/16. BP: 143/67. HR: 74. RR: 16. O2 saturation: 98%. Temp: 98.2 F. Pain level now: 5/10. --10:19 Cecelia Gonzalez R.N. 10:12 11/30/16. BP: 143/67. HR: 74. RR: 16. O2 saturation: 98%. Temp: 98.2 F. Pain level now: 5/10. --10:19 Cecelia Gonzalez R.N. Weight: 68 kg estimated. Height/Length: 62 inches Estimated. BMI: 27.4. --10:14 Cecelia Gonzalez R.N. Medications AmLODIPine Besylate Oral 5 mg, daily. Aspir-Low Oral. Furosemide Oral 80 mg, daily. Glipizide Oral 5 mg, daily. Isosorbide Mononitrate Oral 30mg daily. Levothyroxine Sodium Oral 25 mcg, daily. Lisinopril Oral 40 mg, daily. MetFORMIN HCl Oral 1000mg, 2x a day. Omeprazole Oral 20 mg, 3x a day. Simvastatin Oral 20 mg, daily. --10:17 Cecelia Gonzalez R.N. Tramadol HCL Oral 50 mg, as needed. --10:17 Cecelia Gonzalez R.N. Allergies None. --10:17 Cecelia Gonzalez R.N. Medication/allergy information source: the patient's family. --10:19 Cecelia Gonzalez R.N. History Arrived by private vehicle. Historian: patient and family. Accompanied by family. Primary physician (michelle). This occurred (2 days ago). She has had swelling, redness and trouble walking. The patient has been limping when trying to walk. PAST MEDICAL HX: Tetanus status: unknown. The patient is post-menopausal. SOCIAL HX: Never smoker. No alcohol use or drug use. FALL RISK ASSESSMENT: Fall risk assessment completed. No fall risk identified. NUTRITIONAL RISK ASSESSMENT: The nutritional risk assessment revealed no deficiencies. FUNCTIONAL ASSESSMENT: Functional assessment: no impairments noted. LEARNING NEEDS ASSESSMENT: A learning needs assessment was performed. Factors affecting the patient's ability to learn include communication / language barriers. --10:19 Cecelia Gonzalez R.N. PROBLEMS: Headache. GI Bleeding. Abdominal Pain. Pacemaker. Myocardial Infarction. Cystitis. Diabetes Mellitus. Hypertension. --10:18 Cecelia Gonzalez R.N. ADDITIONAL SURGERIES: Pacemaker. Stents. --10:18 Cecelia Gonzalez R.N. Interventions ID band on patient. To room. --10:19 Cecelia Gonzalez R.N. PHYSICAL ASSESSMENT Ambulatory to room. EXTREMITIES: Erythema on the extremities. Limited ROM present. Increased warmth on the extremities. Lower extremity edema. Extremity pulses are within normal limits. Neuro-vascular status intact to the extremity. Right foot: tenderness, swelling and erythema. Limited weight bearing secondary to pain. SKIN: Skin intact. Skin is warm and dry. --10:20 Cecelia Gonzalez R.N. NURSING PROGRESS NOTES Extremity elevated. Two patient identifiers checked. Call light placed in reach. Side rails up x 1. Bed placed in lowest position. Brakes of bed on. Patient ready for evaluation. --10:20 Cecelia Gonzalez R.N. 10:23 11/30/2016 Hydrocodone-APAP (Hydrocodone-Acetaminophen) PO 5/325 mg Tablets 1 tab given. Allergies verified, confirmed 5 rights and sedative warning given to the patient and patient's family. --10:23 Cecelia Gonzalez R.N. 12:11/30/2016 Keflex (Cephalexin) PO 500 mg given. Allergies verified and confirmed 5 rights. --14:54 Cecelia Gonzalez R.N. 12:10 11/30/2016 Bactrim DS (Sulfamethoxazole-TMP DS) PO 1 tab given. Allergies verified and confirmed 5 rights. --14:54 Cecelia Gonzalez R.N. DISPOSITION / DISCHARGE 12:15. No learning barriers present. Discharge instructions provided and reviewed with the patient and family. Reviewed medication(s) side effects, precautions, dosing and course information. Prescription(s) given to the professor of spanish. Patient verbalized understanding. Written instructions provided in Upper Sorbian. The patient was discharged home and accompanied by family. She left the Emergency Department ambulatory and via private vehicle. Family member driving. Medication list reviewed and validated. --14:54 Cecelia Gonzalez R.N. 14:52 11/30/16. BP: 128/72. HR: 78. RR: 16. O2 saturation: 100%. Temp: deferred. Pain level now: 07/11. 12:32 11/30/16. BP: 133/75. HR: 80. RR: 16. O2 saturation: 100% on room air. 10:12 11/30/16. BP: 143/67. HR: 74. RR: 16. O2 saturation: 98%. Temp: 98.2 F. Pain level now: 10/08. --14:54 Cecelia Gonzalez R.N. Locked/Released at 11/30/2016 14:55 by Cecelia Gonzalez R.N.
--- NOTE | 2016-11-30 12:22 | DIAGNOSTIC IMAGING REPORT ---
PROCEDURE: XR TOE - RIGHT INDICATION: PAIN TECHNIQUE: Three views. COMPARISON: Right foot x-ray 06/21/2014. FINDINGS: Soft tissue swelling of the right fourth toe but there is no fracture, dislocation or bony destruction. IMPRESSION: 1. Right fourth toe soft tissue swelling but no fracture or evidence of osteomyelitis.
--- NOTE | 2016-11-30 17:23 | ED DISCHARGE INSTRUCTIONS ---
Patient: CHELSEA COLIN General Instructions [facility] VisitID: [id number] [place] [address] 81y, F Registration Date/Time: 11/30/2016 11/30/2016 10:12 BP: 143/67. HR: 74. RR: 16. O2 saturation: 98%. Temp: 98.2 F. Pain level now: 5/10. Hypertensive. Oxygen saturation normal. Cellulitis of the right 4th toe. INSTRUCTIONS Warnings: GENERAL WARNINGS: Return or contact your physician immediately if your condition worsens or changes unexpectedly, if not improving as expected, or if other problems arise. Specifically return if pain, vomiting, bleeding, breathing difficulty or fever. Your Current Medications: CONTINUE TAKING THE FOLLOWING MEDICATIONS: AmLODIPine Besylate Oral : 5 mg daily. Aspir-Low Oral. Furosemide Oral : 80 mg daily. Glipizide Oral : 5 mg daily. Isosorbide Mononitrate Oral : 30mg daily. Levothyroxine Sodium Oral : 25 mcg daily. Lisinopril Oral : 40 mg daily. MetFORMIN HCl Oral : 1000mg 2x a day. Omeprazole Oral : 20 mg 3x a day. Simvastatin Oral : 20 mg daily. Tramadol HCL Oral : 50 mg, prn. Prescription Medications: Cephalexin 500 mg: take 1 capsule orally every 8 hours for 10 days. No refill. [place] 5 mg / 325 mg tablets: take 1 orally every 6 hours as needed for pain. Dispense twelve (12). No refill. Substitution is permissible. Bactrim DS 800 mg / 160 mg: take 1 tablet orally every 12 hours for 10 days. No refill. Substitution is permissible. Follow-up: Return to the emergency department as needed. Follow up with a specialist. Follow up with your doctor in three days. Reason for referral: recheck today's concerns. Summary of care provided to patient via paper. Screening today revealed the patient's blood pressure to be in the normal range. The patient should follow up with a primary care provider for blood pressure management. Understanding of the discharge instructions verbalized by patient. ADDITIONAL INFORMATION Cellulitis You have an infection of the skin known as cellulitis. This usually starts with a scrape, cut, insect bite, blister or other opening in the skin which becomes infected. This is a serious condition. It must be watched closely to be sure the infection is not spreading. With antibiotic treatment, the size of the red area will gradually shrink in size until the skin returns to normal. This will take 7-10 days. The red area should never increase in size once the antibiotic medicine has been started. Occasionally, an infection will be resistant to one antibiotic and another one will have to be used. Home Care: 1) Limit the use of the affected part, since excess movement can cause the infection to spread. 2) If the infection is on your leg, walk as little as possible during the first few days of the treatment. Keep your leg elevated while sitting. This will reduce swelling. 3) Take all of the antibiotic medicine exactly as directed until it is gone. Be careful not to miss any doses, especially during the first seven days. Follow Up with your doctor or this facility as directed. Check the infected area daily for the warning signs listed below. Get Prompt Medical Attention if any of the following occur: -- Spreading area of redness -- Increasing swelling or pain -- Appearance of pus or drainage -- Fever over 100.4 F (38.0 C) oral, or over 101.4 F (38.6 C) rectal, after two days on antibiotics Cephalexin Monohydrate Oral tablet What is this medicine? CEPHALEXIN (sef a GORDON in) is a cephalosporin antibiotic. It is used to treat certain kinds of bacterial infections It will not work for colds, flu, or other viral infections. How should I use this medicine? Take this medicine by mouth with a full glass of water. Follow the directions on the prescription label. This medicine can be taken with or without food. Take your medicine at regular intervals. Do not take your medicine more often than directed. Take all of your medicine as directed even if you think you are better. Do not skip doses or stop your medicine early. Talk to your electrical machine builder regarding the use of this medicine in children. While this drug may be prescribed for selected conditions, precautions do apply. What side effects may I notice from receiving this medicine? Side effects that you should report to your doctor or health career placement services counselor as soon as possible: allergic reactions like skin rash, itching or hives, swelling of the face, lips, or tongue breathing problems pain or trouble passing urine redness, blistering, peeling or loosening of the skin, including inside the mouth severe or watery diarrhea unusually weak or tired yellowing of the eyes, skin Side effects that usually do not require medical attention (report to your doctor or health career placement services counselor if they continue or are bothersome): gas or heartburn genital or anal irritation headache joint or muscle pain nausea, vomiting What may interact with this medicine? probenecid some other antibiotics What if I miss a dose? If you miss a dose, take it as soon as you can. If it is almost time for your next dose, take only that dose. Do not take double or extra doses. There should be at least 4 to 6 hours between doses. Where should I keep my medicine? Keep out of the reach of children. Store at room temperature between 59 and 86 degrees F (15 and 30 degrees C). Throw away any unused medicine after the expiration date. What should I tell my health care provider before I take this medicine? They need to know if you have any of these conditions: kidney disease stomach or intestine problems, especially colitis an unusual or allergic reaction to cephalexin, other cephalosporins, penicillins, other antibiotics, medicines, foods, dyes or preservatives or trying to get breast-feeding What should I watch for while using this medicine? Tell your doctor or health career placement services counselor if your symptoms do not begin to improve in a few days. Do not treat diarrhea with over the counter products. Contact your doctor if you have diarrhea that lasts more than 2 days or if it is severe and watery. If you have diabetes, you may get a false-positive result for sugar in your urine. Check with your doctor or health career placement services counselor. Hydrocodone Bitartrate, Acetaminophen Oral tablet What is this medicine? ACETAMINOPHEN; HYDROCODONE (a set a DEBRA tricia fen; joon droe KOE done) is a pain reliever. It is used to treat mild to moderate pain. How should I use this medicine? Take this medicine by mouth. Swallow it with a full glass of water. Follow the directions on the prescription label. If the medicine upsets your stomach, take the medicine with food or milk. Do not take more than you are told to take. Talk to your electrical machine builder regarding the use of this medicine in children. This medicine is not approved for use in children. What side effects may I notice from receiving this medicine? Side effects that you should report to your doctor or health career placement services counselor as soon as possible: allergic reactions like skin rash, itching or hives, swelling of the face, lips, or tongue breathing problems confusion feeling faint or lightheaded, falls stomach pain yellowing of the eyes or skin Side effects that usually do not require medical attention (report to your doctor or health career placement services counselor if they continue or are bothersome): nausea, vomiting stomach upset What may interact with this medicine? alcohol antihistamines isoniazid medicines for depression, anxiety, or psychotic disturbances medicines for sleep muscle relaxants naltrexone narcotic medicines (opiates) for pain phenobarbital ritonavir tramadol What if I miss a dose? If you miss a dose, take it as soon as you can. If it is almost time for your next dose, take only that dose. Do not take double or extra doses. Where should I keep my medicine? Keep out of the reach of children. This medicine can be abused. Keep your medicine in a safe place to protect it from theft. Do not share this medicine with anyone. Selling or giving away this medicine is dangerous and against the law. Store at room temperature between 15 and 30 degrees C (59 and 86 degrees F). Protect from light. Keep container tightly closed. Throw away any unused medicine after the expiration date. Discard unused medicine and used packaging carefully. Pets and children can be harmed if they find used or lost packages. What should I tell my health care provider before I take this medicine? They need to know if you have any of these conditions: brain tumor Crohn's disease, inflammatory bowel disease, or ulcerative colitis drink more than 3 alcohol-containing drinks per day drug abuse or addiction head injury heart or circulation problems kidney disease or problems going to the bathroom liver disease lung disease, asthma, or breathing problems an unusual or allergic reaction to acetaminophen, hydrocodone, other opioid analgesics, other medicines, foods, dyes, or preservatives or trying to get breast-feeding What should I watch for while using this medicine? Tell your doctor or health career placement services counselor if your pain does not go away, if it gets worse, or if you have new or a different type of pain. You may develop tolerance to the medicine. Tolerance means that you will need a higher dose of the medicine for pain relief. Tolerance is normal and is expected if you take the medicine for a long time. Do not suddenly stop taking your medicine because you may develop a severe reaction. Your body becomes used to the medicine. This does NOT mean you are addicted. Addiction is a behavior related to getting and using a drug for a non-medical reason. If you have pain, you have a medical reason to take pain medicine. Your doctor will tell you how much medicine to take. If your doctor wants you to stop the medicine, the dose will be slowly lowered over time to avoid any side effects. You may get drowsy or dizzy when you first start taking the medicine or change doses. Do not drive, use machinery, or do anything that may be dangerous until you know how the medicine affects you. Stand or sit up slowly. There are different types of narcotic medicines (opiates) for pain. If you take more than one type at the same time, you may have more side effects. Give your health care provider a list of all medicines you use. Your doctor will tell you how much medicine to take. Do not take more medicine than directed. Call emergency for help if you have problems breathing. The medicine will cause constipation. Try to have a bowel movement at least every 2 to 3 days. If you do not have a bowel movement for 3 days, call your doctor or health career placement services counselor. Too much acetaminophen can be very dangerous. Do not take Tylenol (acetaminophen) or medicines that contain acetaminophen with this medicine. Many non-prescription medicines contain acetaminophen. Always read the labels carefully. Sulfamethoxazole, Trimethoprim Oral tablet What is this medicine? SULFAMETHOXAZOLE; TRIMETHOPRIM or SMX-TMP (suhl fuh meth OK jordy zohl; trye METH oh prim) is a combination of a sulfonamide antibiotic and a second antibiotic, trimethoprim. It is used to treat or prevent certain kinds of bacterial infections. It will not work for colds, flu, or other viral infections. How should I use this medicine? Take this medicine by mouth with a full glass of water. Follow the directions on the prescription label. Take your medicine at regular intervals. Do not take it more often than directed. Do not skip doses or stop your medicine early. Talk to your electrical machine builder regarding the use of this medicine in children. Special care may be needed. This medicine has been used in children as young as 2 months of age. What side effects may I notice from receiving this medicine? Side effects that you should report to your doctor or health career placement services counselor as soon as possible: allergic reactions like skin rash or hives, swelling of the face, lips, or tongue breathing problems fever or chills, sore throat irregular heartbeat, chest pain joint or muscle pain pain or difficulty passing urine red pinpoint spots on skin redness, blistering, peeling or loosening of the skin, including inside the mouth unusual bleeding or bruising unusually weak or tired yellowing of the eyes or skin Side effects that usually do not require medical attention (report to your doctor or health career placement services counselor if they continue or are bothersome): diarrhea dizziness headache loss of appetite nausea, vomiting nervousness What may interact with this medicine? Do not take this medicine with any of the following medications: aminobenzoate potassium dofetilide metronidazole This medicine may also interact with the following medications: GILL inhibitors like benazepril, enalapril, lisinopril, and ramipril cyclosporine digoxin diuretics indomethacin medicines for diabetes methenamine methotrexate phenytoin potassium supplements pyrimethamine sulfinpyrazone tricyclic antidepressants warfarin What if I miss a dose? If you miss a dose, take it as soon as you can. If it is almost time for your next dose, take only that dose. Do not take double or extra doses. Where should I keep my medicine? Keep out of the reach of children. Store at room temperature between 20 to 25 degrees C (68 to 77 degrees F). Protect from light. Throw away any unused medicine after the expiration date. What should I tell my health care provider before I take this medicine? They need to know if you have any of these conditions: anemia asthma being treated with anticonvulsants if you frequently drink alcohol containing drinks kidney disease liver disease low level of folic acid or [id number]-[id number] dehydrogenase poor nutrition or malabsorption porphyria severe allergies thyroid disorder an unusual or allergic reaction to sulfamethoxazole, trimethoprim, sulfa drugs, other medicines, foods, dyes, or preservatives or trying to get breast-feeding What should I watch for while using this medicine? Tell your doctor or health career placement services counselor if your symptoms do not improve. Drink several glasses of water a day to reduce the risk of kidney problems. Do not treat diarrhea with over the counter products. Contact your doctor if you have diarrhea that lasts more than 2 days or if it is severe and watery. This medicine can make you more sensitive to the sun. Keep out of the sun. If you cannot avoid being in the sun, wear protective clothing and use a sunscreen. Do not use sun lamps or tanning beds/booths. You have been given the following additional information: Cellulitis Cephalexin Monohydrate Oral tablet Hydrocodone Bitartrate, Acetaminophen Oral tablet Sulfamethoxazole, Trimethoprim Oral tablet (Electronically signed by Aldo Bourgeois Dr. 11/30/2016 17:23)
--- NOTE | 2016-11-30 17:24 | ED MED RECONCILIATION SUMMARY ---
Patient: CHELSEA COLIN Medication Reconciliation Report [facility] VisitID: [id number] [place] [address] 81y, F Registration Date/Time: 11/30/2016 Weight: 68.0 kg Height/Length: 62 in. BMI: 27.4 ALLERGIES: None The patient's Home Medications are listed below: CONTINUE TAKING THE FOLLOWING MEDICATIONS: AmLODIPine Besylate Oral 5 mg, daily Aspir-Low Oral Furosemide Oral 80 mg, daily Glipizide Oral 5 mg, daily Isosorbide Mononitrate Oral 30mg daily Levothyroxine Sodium Oral 25 mcg, daily Lisinopril Oral 40 mg, daily MetFORMIN HCl Oral 1000mg, 2x a day Omeprazole Oral 20 mg, 3x a day Simvastatin Oral 20 mg, daily Tramadol HCL Oral 50 mg The source(s) of the original Home Medication information: patient's family member The following Medications were given to the patient in the Emergency Department: Hydrocodone-APAP [PO] PO 1 tab, administered: 11/30/2016 10:23:00 AM Keflex [PO] PO 500 mg, administered: 11/30/2016 12:10:00 PM Bactrim DS [PO] PO 1 tab, administered: 11/30/2016 12:10:00 PM The following Medications were prescribed to the patient: Cephalexin 500 mg: take 1 capsule orally every 8 hours for 10 days. No refill. -- Aldo Bourgeois Dr. [place] 5 mg / 325 mg tablets: take 1 orally every 6 hours as needed for pain. Dispense twelve (12). No refill. Substitution is permissible. -- Aldo Bourgeois Dr. Bactrim DS 800 mg / 160 mg: take 1 tablet orally every 12 hours for 10 days. No refill. Substitution is permissible. -- Aldo Bourgeois Dr.
--- NOTE | 2016-11-30 17:24 | ED MAR SUMMARY ---
..... Medication Administration Record [facility] [address] [place] [address] Patient: CHELSEA COLIN Visit ID: [id number] 81y, F Weight: 68.0 kg Height/Length: 62 in BMI: 27.4 ALLERGIES: None Given 10:23 11/30/2016 Cecelia Gonzalez R.N. Medication Administered: HYDROCODONE-APAP [PO] (HYDROCODONE-ACETAMINOPHEN), Dose: 1 tab 5/325 mg Tablets PO. Medication Ordered: Hydrocodone-APAP PO 5/325 mg (NOW, HIGH ALERT MEDICATION). Given 12:11/30/2016 Cecelia Gonzalez R.N. Medication Administered: KEFLEX [PO] (CEPHALEXIN), Dose: 500 mg PO. Medication Ordered: Keflex PO 500 mg (NOW). Given 12:11/30/2016 Cecelia Gonzalez R.NKeiry Medication Administered: BACTRIM DS [PO] (SULFAMETHOXAZOLE-TMP DS), Dose: 1 tab PO. Medication Ordered: Bactrim DS PO (Tablet 800-160 mg) 1 tab (NOW).
--- NOTE | 2016-11-30 17:24 | ED MAR SUMMARY ---
..... Medication Administration Record [facility] [address] [place] [address] Patient: CHELSEA COLIN Visit ID: [id number] 81y, F Weight: 68.0 kg Height/Length: 62 in BMI: 27.4 ALLERGIES: None Given 10:23 11/30/2016 Cecelia Gonzalez R.N. Medication Administered: HYDROCODONE-APAP [PO] (HYDROCODONE-ACETAMINOPHEN), Dose: 1 tab 5/325 mg Tablets PO. Medication Ordered: Hydrocodone-APAP PO 5/325 mg (NOW, HIGH ALERT MEDICATION). Given 12:11/30/2016 Cecelia Gonzalez R.N. Medication Administered: KEFLEX [PO] (CEPHALEXIN), Dose: 500 mg PO. Medication Ordered: Keflex PO 500 mg (NOW). Given 12:11/30/2016 Cecelia Gonzalez R.NKeiry Medication Administered: BACTRIM DS [PO] (SULFAMETHOXAZOLE-TMP DS), Dose: 1 tab PO. Medication Ordered: Bactrim DS PO (Tablet 800-160 mg) 1 tab (NOW).
--- NOTE | 2016-11-30 17:24 | ED MED RECONCILIATION SUMMARY ---
Patient: CHELSEA COLIN Medication Reconciliation Report [facility] VisitID: [id number] [place] [address] 81y, F Registration Date/Time: 11/30/2016 Weight: 68.0 kg Height/Length: 62 in. BMI: 27.4 ALLERGIES: None The patient's Home Medications are listed below: CONTINUE TAKING THE FOLLOWING MEDICATIONS: AmLODIPine Besylate Oral 5 mg, daily Aspir-Low Oral Furosemide Oral 80 mg, daily Glipizide Oral 5 mg, daily Isosorbide Mononitrate Oral 30mg daily Levothyroxine Sodium Oral 25 mcg, daily Lisinopril Oral 40 mg, daily MetFORMIN HCl Oral 1000mg, 2x a day Omeprazole Oral 20 mg, 3x a day Simvastatin Oral 20 mg, daily Tramadol HCL Oral 50 mg The source(s) of the original Home Medication information: patient's family member The following Medications were given to the patient in the Emergency Department: Hydrocodone-APAP [PO] PO 1 tab, administered: 11/30/2016 10:23:00 AM Keflex [PO] PO 500 mg, administered: 11/30/2016 12:10:00 PM Bactrim DS [PO] PO 1 tab, administered: 11/30/2016 12:10:00 PM The following Medications were prescribed to the patient: Cephalexin 500 mg: take 1 capsule orally every 8 hours for 10 days. No refill. -- Aldo Bourgeois Dr. [place] 5 mg / 325 mg tablets: take 1 orally every 6 hours as needed for pain. Dispense twelve (12). No refill. Substitution is permissible. -- Aldo Bourgeois Dr. Bactrim DS 800 mg / 160 mg: take 1 tablet orally every 12 hours for 10 days. No refill. Substitution is permissible. -- Aldo Bourgeois Dr.
== END 2016-11-30 12:15 | disposition home or self-care (01) ==
LOC: ED SRH 10:00
DX: L03.031 Cellulitis of right toe (principal); X58.XXXA Exposure to other specified factors, initial encounter; Y93.9 Activity, unspecified; Y92.9 Unspecified place or not applicable; Y99.9 Unspecified external cause status